=== PATIENT | female | born 1985 | race Caucasian/White ===

== ENCOUNTER → 2021-03-31 | Outpatient (CLI) | payer BC ==
--- NOTE | 2021-03-31 15:01 | XR ---
EXAMINATION TYPE: XR foot limited RT DATE OF EXAM: 03/31/2021 COMPARISON: NONE HISTORY: 35-year-old female fall downstairs yesterday, pain and injury, assess for fracture. TECHNIQUE: 3 views FINDINGS: Rodgers's toe. Benign bone island proximal fifth metatarsal. Normal variation os supra naviculare. No acute fracture, subluxation, or dislocation. IMPRESSION: No acute osseous abnormality seen.
== END | disposition home or self-care (01) ==
LOC: RADXRMAIN 14:24
PROVIDERS: ATTEND Internal Medicine
DX: M25.571 Pain in right ankle and joints of right foot (principal)